=== PATIENT | male | born 1995 | race Caucasian/White ===

== ENCOUNTER 2025-06-06 14:15 | Emergency (ER) | payer OTHER, SELFPAY ==
[2025-06-06 14:23] VITALS: BP 136/78; PULSE 85; RESP 13; TEMP 36.5; O2SAT 98; BMI 30.5
--- NOTE | 2025-06-06 14:43 | ED_ITS ---
HPI - Extremity Problem General Chief complaint: Extremity Problem,Nontraumatic Stated complaint: numbness pain, r leg low back, pc ref Time Seen by Provider: 06/06/25 14:43 Source: patient Mode of arrival: Ambulatory History of Present Illness HPI Narrative: Patient sent here by physical therapist for right back pain with skin tingling numbness to the right side. Patient states he is getting physical therapy for bulge disc in his back. He has been going to therapy weekly. He is the right groin tingling has been there for at least 4 months. The tingling to the right half of the back has been going on for about 3 weeks. No weakness to arms. No bowel or bladder incontinence or retention. No foot drop. No tingling to foot or toes. Patient denies any history of diabetes. No immunocompromise conditions. No fever chills. No IV drug use. No urinary complaints Related Data Previous Rx's ?Medication ?Instructions ?Recorded methylprednisolone 4 mg tablets in See Rx Instructions PO .COMPLEX 06/06/25 a dose pack (Medrol (Robert)) #21 ea Allergies Allergy/AdvReac Type Severity Reaction Status Date / Time No Known Drug Allergies Allergy Verified 06/06/25 14:20 Review of Systems Review of Systems Narrative: GENERAL: Negative chills, fatigue, malaise, fever, sweats. HEENT: Negative sinus pain, ear pain, sore throat RESPIRATORY: Negative dyspnea, cough CARDIOVASCULAR: Negative chest pain, palpitations GASTROINTESTINAL: Negative vomiting, nausea, abdominal pain : Negative dysuria, frequency, hematuria MUSCULOSKELETAL: Positive muscle or bony pain, positive back pain SKIN: Negative rash, skin lesions NEUROLOGIC: Negative weakness, positive numbness ROS Unobtainable: All systems reviewed & are unremarkable except as noted in HPI and below Patient History Social History Smoking Status: Unknown if ever smoked Smoking Status: Unknown if ever smoked Exam Narrative Exam Narrative: GENERAL: in no distress, not toxic not dyspneic HEAD: Normocephalic. EYES: Pupils equal round ENT: Mucous membranes moist. NECK: Trachea midline. CARDIOVASCULAR: Regular rate and rhythm RESPIRATORY: Clear to auscultation. Breath sounds equal bilaterally. No wheezes, rales, or rhonchi. GASTROINTESTINAL: Abdomen soft, non-tender EXTREMITIES: No gross deformities. BACK: No flank tenderness. Examination of the back no rash. No midline tenderness step-off of the cervical thoracic or lumbar spine. Patient able to lean forward and back and side bends without difficulty. Able to stand up from seated position without any difficulty or hesitation. There is sensation light touch difference right infra scapular line to the waist self beltline compared to the left. NEURO: AOx4. Clear speech steady self gait no foot drop strong bilateral patellar reflexes and ankle flexion-extension SKIN: Warm and dry PSYCH: Not anxious, is cooperative Initial Vital Signs Initial Vital Signs: Vital Signs Temperature 97.7 F 06/06/25 14:23 Pulse Rate 85 06/06/25 14:23 Respiratory Rate 13 06/06/25 14:23 Blood Pressure 136/78 06/06/25 14:23 Pulse Oximetry 98 06/06/25 14:23 Oxygen Delivery Method Room Air 06/06/25 14:23 Course Orders Ordered: Discontinued Medications Ketorolac Tromethamine (Ketorolac 30 Mg/Ml Vial) 15 mg IV NOW ONE Stop: 06/06/25 14:45 Last Admin: 06/06/25 15:01 Dose: 15 mg Documented By: SB Methylprednisolone (Methylprednisolone Succ 125 Mg/2 Ml Vial) 125 mg IV NOW ONE Stop: 06/06/25 14:45 Last Admin: 06/06/25 15:01 Dose: 125 mg Documented By: SB Vital Signs Vital signs: Vital Signs - 8 hr 06/06/25 14:23 Temperature 97.7 F Pulse Rate 85 Respiratory Rate 13 Blood Pressure 136/78 Pulse Oximetry 98 Oxygen Delivery Method Room Air MDM - Extremity (Nontraumatic) Imaging Data CT thoracic spine: Radiologist's Impression: [address] [address] [address] Scan Report Signed Patient: Jr Chase MR#: [id number] : 1995 Acct:[id number] Age/Sex: 29 / M Date of Service: 06/06/25 Loc: ED Accession Number: [id number] Procedure: CT thoracic spine wo con Ordering Provider: Doug Kapadia MD PROCEDURE: CT THORACIC SPINE WO CON INDICATIONS: Right side back pain/tingling/leg pain TECHNIQUE: Noncontrast 3 mm thick sections acquired through the region of interest in the thoracic spine. Sagittal and coronal reformats were then constructed. For radiation dose reduction, the following was used: automated exposure control. COMPARISON: [facility], CT, CT LUMBAR SPINE WO CON, 06/06/2025, 15:04. FINDINGS: Image quality: Excellent. Bones: There is normal overall bony alignment. No acute vertebral body compression fractures. No suspicious sclerotic or lytic bony lesions. Central spinal canal is of normal overall caliber. Soft tissues: No paravertebral masses or hematomas. Visualized posteromedial lungs appear clear. IMPRESSION: No imaging explanation is found for this patient's presenting symptoms. No acute fracture can be seen on these images. Dictated by: Roby Coleman M.D. on 06/06/2025 at 14:24 Approved by: Roby Coleman M.D. on 06/06/2025 at 14:25 CT lumbar spine: Radiologist's Impression: [place] [address] CT Scan Report Signed Patient: Jr Chase MR#: [id number] : 1995 Acct:[id number] Age/Sex: 29 / M Date of Service: 06/06/25 Loc: ED Accession Number: [id number] Procedure: CT lumbar spine wo con Ordering Provider: Doug Kapadia MD PROCEDURE: CT LUMBAR SPINE WO CON INDICATIONS: Right side back pain/tingling/leg pain TECHNIQUE: Noncontrast 3 mm thick sections acquired from the T12 level to the sacrum. Sagittal and coronal reformats were constructed. For radiation dose reduction, the following was used: automated exposure control. COMPARISON: [facility], CT, CT THORACIC SPINE WO CON, 06/06/2025, 15:04. FINDINGS: Image quality: Excellent. Bones: There is normal bony alignment. No acute vertebral body compression fractures. No suspicious lytic or blastic bony lesions. No pars defects. No significant abnormality can be seen throughout the lumbar spine. The disc heights are well preserved. No significant neural foraminal or central canal narrowing can be seen. Soft tissues: No retroperitoneal masses or hematomas. Visualized aorta is normal in caliber. IMPRESSION: No imaging explanation is found for this patient's presenting symptoms. CT study within normal limits. Dictated by: Roby Coleman M.D. on 06/06/2025 at 14:27 Approved by: Roby Coleman M.D. on 06/06/2025 at 14:28 [facility] Narrative Medical decision making narrative: Patient sent here by physical therapist for right back pain with skin tingling numbness to the right side. Patient states he is getting physical therapy for bulge disc in his back. He has been going to therapy weekly. He is the right groin tingling has been there for at least 4 months. The tingling to the right half of the back has been going on for about 3 weeks. No weakness to arms. No bowel or bladder incontinence or retention. No foot drop. No tingling to foot or toes. Patient denies any history of diabetes. No immunocompromise conditions. No fever chills. No IV drug use. No urinary complaints MDM After history and exam, Toradol Solu-Medrol CT thoracic spine CT lumbar spine. We do not have MRI availability today. Differential considered: Includes but not limited to degenerative disc disease herniated disc cauda equina radiculopathy Medical records reviewed: No recent visit for this complaint Lab Test results independently reviewed as above. Pertinent findings: No blood work indicated at this time Imaging studies independently reviewed: CT thoracic spine and CT lumbar spine no acute finding Consultations: None indicated at this time Re-evaluations: 5:29 p.m.. Updated patient results. CT imaging is reassuring. Return precautions reviewed with him. Nontoxic at discharge. He desires discharge home. He states the Toradol and Solu-Medrol has helped him. You will see his primary care for outpatient referral for MRI. Reviewed with them likely radiculopathy from his spine. Discussion: Appropriate for discharge home. Exam and CAT scan imaging are reassuring at this time. Patient will need outpatient MRI. No motor weakness. No incontinence no retention. Diagnosis: Chronic back pain Discharge Plan Departure Patient Disposition: Home Clinical Impression: Radiculopathy of thoracic region, Lumbar radiculopathy Instructions: DI for Lumbar Radiculopathy, Thoracic Radiculopathy Activity Restrictions/Additional Instructions: Your exam and CAT scan imaging are reassuring. Please see your provider for outpatient MRI of your thoracic and lumbar spine. You may continue physical therapy. Continue steroid pack tomorrow. Prescription has been sent to your pharmacy to [facility]. You are being treated for radiculopathy spine. Return if worse if any questions or concerns. Prescriptions: New methylprednisolone [Medrol (Robert)] 4 mg tablets,dose pack See Rx Instructions .ROUTE .COMPLEX Qty: 21 0RF Rx Instructions: orally per package directions Stand Alone Forms: Patient Portal/API, Work Release Note
[2025-06-06] MEDS: methylPREDNISolone succ 125 MG/2 ML VIAL IV (15:01)
[2025-06-06] MEDS: KETOROLAC 30 MG/ML VIAL 15 MG IV (15:01)
[2025-06-06 17:36] VITALS: BP 104/69; PULSE 58; RESP 15; O2SAT 99
== END 2025-06-06 17:43 | disposition home or self-care (01) ==
PROVIDERS: Emergency Provider Emergency Medicine
DX: M54.14 Radiculopathy, thoracic region (principal); M54.16 Radiculopathy, lumbar region
CPT/HCPCS: 36415; 72128; 72131; 96374; 96375; 99284; J1885; J2919

== ENCOUNTER 2025-07-10 19:04 | Emergency (ER) | payer OTHER, SELFPAY ==
[2025-07-10 19:08] VITALS: BP 142/89; PULSE 81; RESP 18; TEMP 36.6; O2SAT 100; BMI 30.5
--- NOTE | 2025-07-10 22:31 | ED.BACK ---
HPI - Back Pain/Injury General Chief Complaint: Back Pain/Injury Stated Complaint: LE numbness Time Seen by Provider: 07/10/25 21:04 Source: patient History of Present Illness HPI Narrative: 30-year-old male with known right lower extremity numbness for the past 6 months off and on. He was diagnosed with lumbar radiculopathy in the past. Yesterday started with some tingling and a bit of sensation loss in the groin area. No bowel or bladder incontinence or retention. He also has off and on some numbness and tingling in bilateral lower extremity feet. Related Data Previous Rx's ?Medication ?Instructions ?Recorded methylprednisolone 4 mg tablets in See Rx Instructions PO .COMPLEX 06/06/25 a dose pack (Medrol (Robert)) #21 ea Allergies Allergy/AdvReac Type Severity Reaction Status Date / Time No Known Drug Allergies Allergy Verified 06/06/25 14:20 Review of Systems Review of Systems ROS Unobtainable: All systems reviewed & are unremarkable except as noted in HPI and below Patient History Social History Smoking Status: Never smoker Smoking Status: Never smoker Exam Narrative Exam Narrative: General: Patient appears to be in no acute distress, acting appropriately Head: normocephalic, atraumatic, HEENT: Pupils equal round reactive, eyes tracking well, neck supple, no JVD Heart: regular rate and rhythm, no murmurs, rubs, or gallops heard Lungs: clear to auscultation, no adventitious sounds Abdomen: soft , nontender, nondistended, positive bowel sounds Neurological: no focal neurological signs, moving all extremities well, alert and oriented x3, Psych: good judgment ,good insight, mood is normal. Initial Vital Signs Initial Vital Signs: Vital Signs Temperature 98 F 07/10/25 19:08 Pulse Rate 81 07/10/25 19:08 Respiratory Rate 18 07/10/25 19:08 Blood Pressure 142/89 H 07/10/25 19:08 Pulse Oximetry 100 07/10/25 19:08 Oxygen Delivery Method Room Air 07/10/25 19:08 Course Vital Signs Vital signs: Vital Signs - 8 hr 07/10/25 22:48 Pulse Rate 77 Respiratory Rate 18 Blood Pressure 140/80 Pulse Oximetry 100 Oxygen Delivery Method Room Air MDM - Back Pain/Injury MDM Narrative Medical decision making narrative: 30-year-old male who was reassured that his symptoms were most likely from his lumbar radiculopathy. Patient denied any saddle anesthesia or bowel or bladder incontinence. Offered imaging but patient did not feel was necessary as he had a CT done fairly recently. CT of the lumbar and thoracic spine done here approximately a month ago did not show any abnormalities. Patient discharged safely with instructions on exercises that he can try along with following up his PCP for potential formal physical therapy. Advised to return if he has any signs of saddle anesthesia. Discharge Plan Departure Patient Disposition: Home Clinical Impression: Bilateral lumbar radiculopathy Instructions: DI for Lumbar Radiculopathy Activity Restrictions/Additional Instructions: Continue with low back exercises and continue to stay active. Come back sooner if having any signs of loss of bowel or bladder incontinence. May benefit from physical therapy in the future. Prescriptions: No Action methylprednisolone [Medrol (Robert)] 4 mg tablets,dose pack See Rx Instructions .ROUTE .COMPLEX Qty: 21 0RF Rx Instructions: orally per package directions Referrals: [facility] [Primary Care Provider, Family Practice] Stand Alone Forms: Patient Portal/API
[2025-07-10 22:48] VITALS: BP 140/80; PULSE 77; RESP 18; O2SAT 100
== END 2025-07-10 22:48 | disposition home or self-care (01) ==
PROVIDERS: Emergency Provider Family Medicine
DX: M54.16 Radiculopathy, lumbar region (principal)
CPT/HCPCS: 99281